=== PATIENT | female | born 1980 | race Hispanic/Latino ===

== ENCOUNTER 2018-05-24 18:18 | Emergency (ER) | payer BC ==
[~2018-05-24] VITALS: Ht 149.9 cm; Wt 113.4 kg
[2018-05-24] MEDS ORDERED: SODIUM CHLORIDE 0.9% 1000ML 1,000 ML IV SCH (18:45)
--- NOTE | 2018-05-24 19:15 | NUR ---
assumed care of pt
--- NOTE | 2018-05-24 19:15 | NUR ---
VERBAL REPORT GIVEN TO YANIV MOLINA.
[2018-05-24 21:06] VITALS: BP 132/53
== END 2018-05-24 20:55 | disposition home or self-care (01) ==
LOC: FSED 18:18
DX: R42 Dizziness and giddiness (principal); R53.83 Other fatigue; E11.9 Type 2 diabetes mellitus without complications
CPT/HCPCS: 80053; 82553; 82948; 84484; 85025; 99282

== ENCOUNTER → 2018-09-03 | Day surgery (SDC) | payer OTHER ==
[~2018-09-03] MED LIST: ATORVASTATIN CA10 MG PO; INSULIN REGULAR, HUMAN 100 UNIT/1 ML 3ML VIAL ONE; LIDOCAINE HCL 2% LOCAL INJ 5 ML SDV VIAL INJ ONE; METFORMIN HCL500 MG PO; MIDAZOLAM HCL 2 MG/2 ML VIAL ONE; PROPOFOL IV EMULSION 10 MG/ML 20 ML VIAL ONE
[2018-09-03 09:55] VITALS: BP 128/78
--- NOTE | 2018-09-03 12:17 | Operative Report ---
DATE OF PROCEDURE: 09/03/2018 SURGEON: Leland Allan MD PREOPERATIVE DIAGNOSIS: Chronic gastroesophageal reflux disease. POSTOPERATIVE DIAGNOSES: 1. Hiatal hernia. 2. Chronic gastroesophageal reflux disease. 3. Distal esophagitis. PREOPERATIVE INDICATIONS: Treat disease, assess for any mucosal or gastroesophageal disease. PROCEDURES: Esophagogastroduodenoscopy with distal esophageal biopsy ([id number]). ANESTHESIA: Moderate sedation. ASSISTANTS: None. FLUIDS: As per Anesthesia. ESTIMATED BLOOD LOSS: Minimal. DRAINS: None. COMPLICATIONS: None. SPECIMENS: Distal esophagus. GRAFTS: None. FINDINGS: 1. A 2 cm hiatal hernia. 2. Distal esophagitis at the GE junction. PROCEDURE IN DETAIL: The patient was brought to the endoscopy suite and was sedated with IV propofol. A preprocedure pause was performed, identifying the patient, use of perioperative antibiotics, intended procedure, and staff surgeon, and also the endoscope was inserted through the oropharynx and guided to the second portion of the duodenum. No duodenal abnormalities were noted. There was a 2 cm hiatal, paraesophageal, hernia. There was also some distal esophagitis at the GE junction, which was biopsied with cold forceps. Prior to removing the endoscope, the stomach was deflated. The patient tolerated the procedure well. Type of wound was type 1, clean. Leland Allan MD [facility] /[id number]
== END | disposition home or self-care (01) ==
LOC: OR 07:59
PROVIDERS: ATTEND Surgery
DX: K21.9 Gastro-esophageal reflux disease without esophagitis (principal); K20.9 Esophagitis, unspecified; K44.9 Diaphragmatic hernia without obstruction or gangrene; E78.00 Pure hypercholesterolemia, unspecified; E66.01 Morbid (severe) obesity due to excess calories; F41.9 Anxiety disorder, unspecified; F17.200 Nicotine dependence, unspecified, uncomplicated; Z91.041 Radiographic dye allergy status; Z79.84 Long term (current) use of oral hypoglycemic drugs; Z68.43 Body mass index [BMI] 50.0-59.9, adult
CPT/HCPCS: 36415; 43239; 81025; 82948; 88305; J2001; J2250; J2704; J1817

== ENCOUNTER 2020-02-07 14:22 | Emergency (ER) | payer OTHER ==
[~2020-02-07] VITALS: Ht 149.9 cm; Wt 124.7 kg
[~2020-02-07 14:22] MED LIST changes: -INSULIN REGULAR, HUMAN 100 UNIT/1 ML 3ML VIAL ONE; -LIDOCAINE HCL 2% LOCAL INJ 5 ML SDV VIAL INJ ONE; -MIDAZOLAM HCL 2 MG/2 ML VIAL ONE; -PROPOFOL IV EMULSION 10 MG/ML 20 ML VIAL ONE
[2020-02-07] MEDS ORDERED: SODIUM CHLORIDE 0.9% 1000ML 1,000 ML IV STA (14:29)
--- NOTE | 2020-02-07 14:29 | Emergency Department Note ---
History of Present Illnes History of Present Illness Chief Complaint: General Medicine Complaints History of Present Illness This is a 39 year old female whom had tested positive for COVID-19 infection 15 days prior was driving to a clinic to get retested when she experienced a sudden onset of flushing dizziness at approximately 1330. Denies DAVID , REYES. Patient pulled her vehicle over and EMS evaluated patient at scene with noted elevated BS of 300 . Seen in triage upon arrival to ED Historian: Patient, Family Member Arrival Mode: Car Onset (how long ago): hour(s) Radiation: Reports non-radiation Severity: moderate Onset quality: sudden Duration (how long): hour(s) Timing of current episode: constant Progression: partially resolved Chronicity: new Context: Reports recent illness Relieving factors: none Exacerbating factors: none Associated symptoms: Reports malaise, Reports weakness Previous service: tests performed Past Medical/Family History Physician Review I have reviewed the patient's past medical and family history. Any updates have been documented here. Past Medical History Recent Fever: No Clinical Suspicion of Infectio: Yes New/Unexplained Change in Ment: No Past Medical History: Diabetes Past Surgical History: Social History Smoking Cessation: Never Smoker Alcohol Use: None Any Illegal Drug Use: No Other Last Tetanus: UNKNOWN Review of Systems Review of Systems Constitutional: Reports other (dizziness) EENTM: Reports no symptoms Cardiovascular: Reports no symptoms Respiratory: Reports no symptoms Gastrointestinal: Reports no symptoms Genitourinary: Reports no symptoms Musculoskeletal: Reports no symptoms Integumentary: Reports no symptoms Neurological: Reports no symptoms Psychological: Reports no symptoms Endocrine: Reports no symptoms Hematological/Lymphatic: Reports no symptoms Physical Exam Related Data Allergies: Coded Allergies: iodine (Verified Allergy, Unknown, 05/24/18) Vital signs reviewed: Yes Physical Exam CONSTITUTIONAL Constitutional: Present morbidly obese HENT HENT: Present normocephalic, Present atraumatic, Present oropharynx clear/moist, Present nose normal HENT L/R: Present left ext ear normal, Present right ext ear normal EYES Eyes: Reports PERRL, Reports conjunctivae normal NECK Neck: Present ROM normal PULMONARY Pulmonary: Present effort normal, Present breath sounds normal CARDIOVASCULAR Cardiovascular: Present regular rhythm, Present heart sounds normal, Present capillary refill normal, Present normal rate GASTROINTESTINAL Abdominal: Present soft, Present nontender, Present bowel sounds normal GENITOURINARY Genitourinary: Present exam deferred SKIN Skin: Present warm, Present dry MUSCULOSKELETAL Musculoskeletal: Present ROM normal NEUROLOGICAL Neurological: Present alert, Present oriented x 3, Present no gross motor or sensory deficits PSYCHOLOGICAL Psychological: Present mood/affect normal, Present judgement normal Results Laboratory Lab results reviewed: Yes Laboratory comments Laboratory Tests Test 02/07/20 15:20 02/07/20 14:20 Arterial Blood pH 7.44 (7.35-7.45) Arterial Blood Partial Pressure CO2 31 mmHg (35-45) Arterial Blood Partial Pressure O2 78 mmHg (80-105) Arterial Blood HCO3 21 mmol/L (22-26) Arterial Blood Total CO2 22 Arterial Blood Oxygen Saturation 96.0 % (95-98) Arterial Blood Base Excess -3.0 mmol/L (-2 - 3) FiO2 21 % White Blood Count 5.09 x10e3/uL (4.8-10.8) Red Blood Count 4.94 x10e6/uL (3.6-5.1) Hemoglobin 11.2 g/dL (12.0-16.0) Hematocrit 37.1 % (34.2-44.1) Mean Corpuscular Volume 75.1 fL (81-99) Mean Corpuscular Hemoglobin 22.7 pg (28-32) Mean Corpuscular Hemoglobin Concent 30.2 g/dL (31-35) Red Cell Distribution Width 17.1 % (11.7-14.4) Platelet Count 371 x10e3/uL (140-360) Neutrophils (%) (Auto) 59.9 % (38.7-80.0) Lymphocytes (%) (Auto) 31.6 % (18.0-39.1) Monocytes (%) (Auto) 6.3 % (4.4-11.3) Eosinophils (%) (Auto) 0.6 % (0.0-6.0) Basophils (%) (Auto) 0.8 % (0.0-1.0) Neutrophils # (Auto) 3.1 (2.1-6.9) Lymphocytes # (Auto) 1.6 (1.0-3.2) Monocytes # (Auto) 0.3 (0.2-0.8) Eosinophils # (Auto) 0.0 (0.0-0.4) Basophils # (Auto) 0.0 (0.0-0.1) Absolute Immature Granulocyte (auto 0.04 x10e3/uL (0-0.1) Urine Color Yellow (YELLOW) Urine Clarity Clear (CLEAR) Urine pH 6.5 (5 - 7) Urine Specific Hamilton 1.020 (1.010-1.025) Urine Protein Trace (NEGATIVE) Urine Glucose (UA) 500 (NEGATIVE) Urine Ketones Trace (NEGATIVE) Urine Blood Trace (NEGATIVE) Urine Nitrite Negative (NEGATIVE) Urine Bilirubin Negative (NEGATIVE) Urine Urobilinogen 1 mg/dL (0.2 - 1) Urine Leukocyte Esterase Negative (NEGATIVE) Urine RBC 0-5 /HPF (0-5) Urine WBC 0-5 /HPF (0-5) Urine Epithelial Cells Few /LPF (NONE) Urine Bacteria Few /HPF (NONE) Urine Yeast Few (NONE) Urine Test Negative (NEGATIVE) Sodium Level 134 mmol/L (136-145) Potassium Level 3.4 mmol/L (3.5-5.1) Chloride Level 101 mmol/L (98-107) Carbon Dioxide Level 20 mmol/L (22-29) Anion Gap 16.4 mmol/L (8-16) Blood Urea Nitrogen 6 mg/dL (7-26) Creatinine 0.59 mg/dL (0.57-1.11) Estimat Glomerular Filtration Rate > 60 ML/MIN (60-) BUN/Creatinine Ratio 10 (6-25) Glucose Level 323 mg/dL (74-118) Calcium Level 8.0 mg/dL (8.4-10.2) Total Bilirubin 0.5 mg/dL (0.2-1.2) Aspartate Amino Transf (AST/SGOT) 17 IU/L (5-34) Alanine Aminotransferase (ALT/SGPT) 17 IU/L (0-55) Alkaline Phosphatase 51 IU/L (40-150) Creatine Kinase 48 IU/L (29-168) Creatine Kinase MB 0.50 ng/mL (0-5.0) Troponin I < 0.001 ng/mL (0-0.300) Total Protein 6.8 g/dL (6.5-8.1) Albumin 2.7 g/dL (3.5-5.0) Globulin 4.1 g/dL (2.3-3.5) Albumin/Globulin Ratio 0.7 (0.8-2.0) Urine Opiates Screen Negative (NEGATIVE) Urine Methadone Screen Negative (NEGATIVE) Urine Barbiturates Screen Negative (NEGATIVE) Urine Phencyclidine Screen Negative (NEGATIVE) Urine Amphetamines Screen Negative (NEGATIVE) Urine Methamphetamines Screen Negative (NEGATIVE) Urine Benzodiazepines Screen Negative (NEGATIVE) Urine Cocaine Screen Negative (NEGATIVE) Urine Cannabinoids Screen Negative (NEGATIVE) Imaging Imaging results reviewed: Yes Impressions [place] [address] Patient Name: OSEAS SWENSON MR #: [id number] : 1980 Age/Sex: 39/F Req #: [id number] Adm Physician: Ordered by: YULISSA CAO DO Report #: [id number] Location: ER Room/Bed: ____ Procedure: [id number] MRI/MRI BRAIN WO Exam Date: Exam Time: REPORT STATUS: Signed Brain MRI without IV Contrast History: Dizziness Comparison studies: Head CT scan 02/07/2020 Technique: Sagittal T2; axial DWI, FLAIR, GRE, T2, T1, Coronal FLAIR. Intravenous contrast: None Findings: Scalp: Normal in signal . No masses . Bone marrow: Normal in signal intensity. Extra-axial: No masses or fluid collections. Brain sulci: Appropriate for age. Ventricles: Normal in size . No hydrocephalus . Parenchyma: Restricted diffusion in the right insular cortex, subinsular region, morton radiata and frontotemporal operculum is consistent with acute ischemic infarct. There is very minimal FLAIR hyperintense signal that corresponds to the area of restricted diffusion without mass effect represents hyperacute to early acute stage of the vascular insult. No masses, hemorrhage or chronic cortical ischemic insults. Suprasellar region: No abnormalities. Craniocervical junction: No abnormalities. Patent foramen magnum. No Chiari one malformation. Vessels: Normal flow-voids in the arteries and sinuses. IMPRESSION: Acute ischemic infarct at the right insular cortex, subinsular region, morton radiata and frontotemporal operculum. Recommendation: CTA of the head and neck for further assessment. Neurology consultation. Findings were discussed by phone with Dr. Cao, ER Physician, on 02/07/2020 6:04 PM. Preliminary report submitted by Dr. James Zaidi on 02/07/2020 6:10 PM. I have reviewed the images and agree with findings in the preliminary report. Signed by: Dr. Mara Granados M.D. on 02/07/2020 8:14 PM Dictated By: MARA GRANADOS MD 13 Transcribed By: ANIRUDH on 02/07/202013 COPY TO: YULISSA CAO DO~ [place] [address] Patient Name: OSEAS SWENSON MR #: [id number] : 1980 Age/Sex: 39/F Req #: [id number] Adm Physician: Ordered by: YULISSA CAO DO Report #: [id number] Location: ER Room/Bed: Procedure: [id number] DX/CHEST SINGLE (PORTABLE) Exam Date: 02/07/20 Exam Time: 1456 REPORT STATUS: Signed X-ray chest frontal view History: Covid Comparison: None Findings: Lines and tubes: No change Central airways: Unremarkable Cardiac silhouette: Unremarkable Great vessels: Unremarkable Mediastinal silhouettes: Unremarkable Pleura: No pleural effusion, pneumothorax or thickening Diaphragms: Unremarkable Lungs: Faint scattered pulmonary opacities bilaterally especially noticeable in the right mid and lower lung zones. Skeletal structures: Unremarkable Extrathoracic soft tissues: Unremarkable Impression: Findings consistent with atypical pneumonitis. Signed by: Ana Maria Doe MD on 02/07/2020 3:36 PM Dictated By: ANA MARIA DOE MD 35 Transcribed By: ANIRUDH on 02/07/201535 COPY TO: YULISSA CAO DO~ Critical Care Time Total Critical Care Time (min): 61 Critcal care necessary due to: JOB MOLDER failure or compromise Critcal care time spent by me: develop tx plan w patient/surrogate, discussion w consultants, evaluation patient response to tx, examination of patient, obtaining hx from patient/surrogate, order/perform tx or interventions, order/review laboratory studies, order/review radiographic studies, re- evaluation of patient condition Clinical Decision Tools NIH Stroke Scale Interval: baselline NIH Stroke Score: NIH Stroke Score Response (Comments) Value Level of Consciousness Alert, Keenly Responsive 0 Level of Consciousness Questions Answers Both Correctly 0 Level of Consciousness Commands Performs Both Tasks 0 Lateral Gaze Paresis Normal 0 Visual Field Loss No Visual Loss 0 Facial Palsy Normal Symmetrical Move 0 Motor Left Arm Drift, Does Not Hit Bed 1 Motor Right Arm No Drift, Arm Stays 45/90 0 Motor Left Leg No Drift, Arm Stays 45/90 0 Motor Right Leg No Drift, Arm Stays 45/90 0 Limb Ataxia Absent 0 Sensory Loss Normal 0 Language Aphasia No Aphasia, Normal 0 Dysarthria Mild/Mod Slurs Words 1 Extinction and Inattention No Abnormality 0 Total 2 Assessment & Plan Medical Decision Making MDM Diff Dx : DKA, Sepsis, PNA, intracranial brain pathology During the course of the ED evaluation, patient with no clear neurodeficitis with ongoing dizziness. DKA and COVID-19 infection considered. Patient re-evaluated and noted to have a subtle elevation in AG . During re-evaluation patient states that she was having slurring of speech. STAT MRI ordered and brain lesion noted at 1730. Transfer initiated and d/w with [facility] neurology who recommended NO tPA to be administered. MRI interpretation conveyed to me by phone at 1801 with confirmation of stroke. Cardene gtt initiated for elevated BP . Prolong discussion with spouse. Reassessment Reassessment time: 18:03 Reassessment 17:35 informed by electrical engineering technologist regarding concerning lesion suggestive of brain lesion/CVA. MRI asked to expedite the reading of the MRI . without the benefits of radiology interpretation patient ,transfer initiated and acceptance by DR Jacobson neurologist at [facility]. As of 17:58 no official radiology interpretation. Informed that although bolus of tPA available there is not enough medication for tPA over one hour. D/W Dr Jacobson without official MRI interpretation, and without enough medication that tPA not advised to be given. At this time helicopter enroute to airlift patient to [facility] at 18:01, radiology conveyed results per phone " acute R lacunar infarct" Assessment & Plan Final Impression: (1) CVA (cerebral vascular accident) (2) Hyperglycemia (3) COVID-19 Depart Disposition: TRANS TO OTHER [facility] Home Meds Reported Medications Atorvastatin Calcium (ATORVASTATIN CALCIUM) 10 Mg Tablet, PO 2100, #30 TAB 08/31/18 Metformin Hcl (METFORMIN HCL) 500 Mg Tablet, 500 MG PO BID, #60 TAB 08/31/18 YULISSA CAO DO Feb 07, 2020 14:29
[2020-02-07 14:51] LABS: BASOPHILS % 0.8 % (0.0-1.0); EOSINOPHILS % 0.6 % (0.0-6.0); HEMATOCRIT 37.1 % (34.2-44.1); HEMOGLOBIN 11.2 g/dL (12.0-16.0); LYMPHOCYTES # (AUTO) 1.6 (1.0-3.2); LYMPHOCYTES % 31.6 % (18.0-39.1); MEAN CORPUSCULAR HEMOGLOBIN 22.7 pg (28-32); MEAN CORPUSCULAR HGB CONC 30.2 g/dL (31-35); MEAN CORPUSCULAR VOLUME 75.1 fL (81-99); MONOCYTES # (AUTO) 0.3 (0.2-0.8); MONOCYTES % 6.3 % (4.4-11.3); NEUTROPHILS # (AUTO) 3.1 (2.1-6.9); NEUTROPHILS % 59.9 % (38.7-80.0); PLATELET COUNT 371 x10e3/uL (140-360); RED BLOOD COUNT 4.94 x10e6/uL (3.6-5.1); RED CELL DISTRIBUTION WIDTH 17.1 % (11.7-14.4)
--- OUTSIDE RECORDS SUMMARY | 2020-02-07 14:54 | XMS REPORT | Continuity of Care Document ---
Author Author [facility] Organization [facility] Address [address] [place] [address] Phone Unavailable Care Team Providers Care Court Officer Name Role Phone NO, PCP PCP Unavailable Problems This patient has no known problems. Allergies, Adverse Reactions, Alerts Allergy Name Allergy Type Status Severity Reaction(s) Onset Date Inacti ve Date Treating Clinician Comments Source Iodine Allergy to Substance Active 2018-05-24 00:00:00 [facility] Medications This patient has no known medications. Procedures This patient has no known procedures. Encounters Start Date/Time End Date/Time [facility] Source 2018-05-24 18:18:00 2018-05-24 20:55:00 Departed Emergency Room [facility] [id number] [facility] Results Test Description Test Time Test Comments Results Result Comments Source DIAG MAMM BILATERAL KAREN CAD DIGITAL 2020-01-20 12:15:36 Name: Oseas : 1980 Sex: F - DIAG MAMM BILATERAL KAREN CAD DIGITALBILATERAL FIRST EVER DIGITAL DIAGNOSTIC MAMMOGRAM 3D/2D WITH CAD: 01/20/2020CLINICAL: Right breast pain. Digital breast tomosynthesis was performed in addition to routine CC and MLO views. Current mammographic images were evaluated by either a [employer]acel[employer] M-Vu or a [employer] ImageChecker CAD (computer aided detection system). No prior exams were available for comparison. There are scattered fibroglandular tissues in both breasts. No suspicious mass, architectural distortion, malignant type calcification, or lymph node abnormality detected. INCOMPLETE: ADDITIONAL IMAGING EVALUATION NEEDEDBilateral ultrasound pending for additional evaluation. - BREAST ULTRASOUND BILATERALULTRASOUND OF BOTH BREASTS AND BOTH AXILLA: 01/20/2020No prior exams were available for comparison. Real-time ultrasound of both breasts and both axilla and clinical breast exam were performed. No abnormalities were seen sonographically in either breast or either axilla. Clinical breast exam was unremarkable.IMPRESSION: NEGATIVE There is no sonographic evidence of malignancy. Resume annual screening mammography in one year. Loretta Meeks M.D. dm/:01/20/2020 12:15:36 Entry: - 01/21/2020 10:36:32Imaging Technologist: Kamla SHAH, [facility]-FWletter sent: BIRADS 1-2 Combo FU Letter Mammogram BI-RADS: 0 Incomplete: Additional Imaging Evaluation Needed Ultrasound BI-RADS: 1 Negative BREAST ULTRASOUND BILATERAL 2020-01-20 12:15:36 Name: Oseas : 1980 Sex: F - DIAG MAMM BILATERAL KAREN CAD DIGITALBILATERAL FIRST EVER DIGITAL DIAGNOSTIC MAMMOGRAM 3D/2D WITH CAD: 01/20/2020CLINICAL: Right breast pain. Digital breast tomosynthesis was performed in addition to routine CC and MLO views. Current mammographic images were evaluated by either a CatacelCOMP M-Vu or a [employer] ImageChecker CAD (computer aided detection system). No prior exams were available for comparison. There are scattered fibroglandular tissues in both breasts. No suspicious mass, architectural distortion, malignant type calcification, or lymph node abnormality detected. INCOMPLETE: ADDITIONAL IMAGING EVALUATION NEEDEDBilateral ultrasound pending for additional evaluation. - BREAST ULTRASOUND BILATERALULTRASOUND OF BOTH BREASTS AND BOTH AXILLA: 01/20/2020No prior exams were available for comparison. Real-time ultrasound of both breasts and both axilla and clinical breast exam were performed. No abnormalities were seen sonographically in either breast or either axilla. Clinical breast exam was unremarkable.
[2020-02-07 15:06] LABS: ALANINE AMINOTRANSFERASE 17 IU/L (0-55); ALBUMIN 2.7 g/dL (3.5-5.0); ALBUMIN/GLOBULIN RATIO 0.7 (0.8-2.0); ALKALINE PHOSPHATASE 51 IU/L (40-150); ANION GAP 16.4 mmol/L (8-16); BLOOD UREA NITROGEN 6 mg/dL (7-26); BUN/CREATININE RATIO 10 (6-25); CARBON DIOXIDE 20 mmol/L (22-29); CHLORIDE 101 mmol/L (98-107); CREATINE KINASE 48 IU/L (29-168); CREATININE, SERUM 0.59 mg/dL (0.57-1.11); EST GLOMERULAR FILTRATION RATE > 60 ML/MIN (60-); GLUCOSE 323 mg/dL (74-118); POTASSIUM 3.4 mmol/L (3.5-5.1); SODIUM 134 mmol/L (136-145)
--- NOTE | 2020-02-07 15:20 | Diagnostic Imaging Report ---
Examination: CT BRAIN WO History:Dizziness. Weakness. Comparison studies:None Technique: Axial images were obtained from the skull base to the vertex. Coronal and sagittal images reconstructed from the axial data. Dose modulation, iterative reconstruction, and/or weight based adjustment of the mA/kV was utilized to reduce the radiation dose to as low as reasonably achievable. Intravenous contrast: None Findings: Scalp: No abnormalities. Bones: No fractures, blastic or lytic lesions. Brain sulci: Appropriate for age. Ventricles: Normal in size and configuration. No hydrocephalus. Extra-axial space: No abnormalities. Parenchyma: No abnormal densities. No masses, hemorrhage, or acute or chronic cortical based vascular insults.. Sellar/suprasellar region: No abnormalities. Craniocervical junction: Patent foramen magnum. No Chiari one malformation. Incidental findings: None. Impression: No intracranial abnormalities. Signed by: Dr. Meena Petit M.D. on 02/07/2020 3:17 PM
[2020-02-07 15:34] LABS: ABG HCO3 21 mmol/L (22-26); ABG PCO2 31 mmHg (35-45); ABG PH 7.44 (7.35-7.45); ABG PO2 78 mmHg (80-105); ABG TCO2 22
[2020-02-07 15:38] LABS: CLARITY,URINE CLEAR (CLEAR); COLOR,URINE YELLOW (YELLOW); LEUKOCYTE ESTERASE ,URINE NEGATIVE (NEGATIVE)
[2020-02-07 15:39] LABS: AMPHETAMINES SCREEN,URINE NEGATIVE (NEGATIVE); BENZODIAZEPINES SCREEN,URINE NEGATIVE (NEGATIVE); BILIRUBIN,URINE NEGATIVE (NEGATIVE); KETONES,URINE TRACE (NEGATIVE); NITRITE,URINE NEGATIVE (NEGATIVE); PHENCYCLIDINE SCREEN,URINE NEGATIVE (NEGATIVE); PREGNANCY TEST, URINE NEGATIVE (NEGATIVE); PROTEIN,URINE DIPSTICK TRACE (NEGATIVE); URINE UROBILINOGEN 1 mg/dL (0.2 - 1)
--- NOTE | 2020-02-07 15:40 | Diagnostic Imaging Report ---
X-ray chest frontal view History: Covid Comparison: None Findings: Lines and tubes: No change Central airways: Unremarkable Cardiac silhouette: Unremarkable Great vessels: Unremarkable Mediastinal silhouettes: Unremarkable Pleura: No pleural effusion, pneumothorax or thickening Diaphragms: Unremarkable Lungs: Faint scattered pulmonary opacities bilaterally especially noticeable in the right mid and lower lung zones. Skeletal structures: Unremarkable Extrathoracic soft tissues: Unremarkable Impression: Findings consistent with atypical pneumonitis. Signed by: George Coleman MD on 02/07/2020 3:36 PM
[2020-02-07 15:49] LABS: BACTERIA,URINE FEW /HPF; EPITHELIAL CELLS,URINE FEW /LPF; RBC,URINE 0-5 /HPF (0-5); WBC,URINE (MAN) 0-5 /HPF (0-5)
[2020-02-07 15:50] LABS: YEAST,URINE FEW
[2020-02-07] MEDS ORDERED: SODIUM CHLORIDE 0.9% 1000ML 1,000 ML ONE (16:12)
--- NOTE | 2020-02-07 17:39 | NUR ---
called [facility] for transport
[2020-02-07] MEDS ORDERED: ALTEPLASE 50 MG/VIAL (29 MILLION IU) IV ONE ×2 (17:45)
[2020-02-07] MEDS ORDERED: ALTEPLASE RECOMBINANT 2 MG/2 ML VIAL ONE (17:49)
[2020-02-07] MEDS ORDERED: HYDRALAZINE HCL 20 MG/ML VIAL IV STA (18:16)
[2020-02-07] MEDS ORDERED: ASPIRIN 325 MG TAB PO STA (18:16)
[2020-02-07] MEDS ORDERED: ASPIRIN 81 MG CHEW TAB ONE (18:27)
[2020-02-07] MEDS ORDERED: NICARDIPINE 20MG/200ML PREMIX 200 ML IV SCH (18:30)
[2020-02-07] MEDS ORDERED: NICARDIPINE 20MG/200ML PREMIX 200 ML ONE (18:37)
--- NOTE | 2020-02-07 18:41 | NUR ---
[facility] eta at least another 30 mins.
--- NOTE | 2020-02-07 20:17 | Diagnostic Imaging Report ---
Brain MRI without IV Contrast History: Dizziness Comparison studies: Head CT scan 02/07/2020 Technique: Sagittal T2; axial DWI, FLAIR, GRE, T2, T1, Coronal FLAIR. Intravenous contrast: None Findings: Scalp: Normal in signal . No masses . Bone marrow: Normal in signal intensity. Extra-axial: No masses or fluid collections. Brain sulci: Appropriate for age. Ventricles: Normal in size . No hydrocephalus . Parenchyma: Restricted diffusion in the right insular cortex, subinsular region, morton radiata and frontotemporal operculum is consistent with acute ischemic infarct. There is very minimal FLAIR hyperintense signal that corresponds to the area of restricted diffusion without mass effect represents hyperacute to early acute stage of the vascular insult. No masses, hemorrhage or chronic cortical ischemic insults. Suprasellar region: No abnormalities. Craniocervical junction: No abnormalities. Patent foramen magnum. No Chiari one malformation. Vessels: Normal flow-voids in the arteries and sinuses. IMPRESSION: Acute ischemic infarct at the right insular cortex, subinsular region, morton radiata and frontotemporal operculum. Recommendation: CTA of the head and neck for further assessment. Neurology consultation. Findings were discussed by phone with Dr. Cao, ER Physician, on 02/07/2020 6:04 PM. Preliminary report submitted by Dr. James Zaidi on 02/07/2020 6:10 PM. I have reviewed the images and agree with findings in the preliminary report. Signed by: Dr. Mara James M.D. on 02/07/2020 8:14 PM
== END 2020-02-07 19:35 | disposition other institution (70) ==
LOC: ER 14:30
DX: I63.9 Cerebral infarction, unspecified (principal); U07.1 COVID-19; E11.65 Type 2 diabetes mellitus with hyperglycemia; R42 Dizziness and giddiness
CPT/HCPCS: 36415; 36600; 51700; 70450; 70551; 71045; 80053; 80307; 81001; 81025; 82550; 82553; 82805; 84484; 85025; 99284; J0360; J7030; J2997